=== PATIENT | male | born 1970 | race Caucasian/White ===

== ENCOUNTER 2019-07-05 14:23 | Outpatient (CLI) | payer MEDICAID | END 2019-07-05 23:59 | disposition home or self-care (01) | LOC: RAD 14:23 | PROVIDERS: ATTEND Family Medicine | DX: R13.14 Dysphagia, pharyngoesophageal phase (principal); R13.11 Dysphagia, oral phase; K21.9 Gastro-esophageal reflux disease without esophagitis; F17.200 Nicotine dependence, unspecified, uncomplicated | CPT/HCPCS: 74230 ==

== ENCOUNTER 2024-09-03 14:57 | Emergency (ER) | payer MEDICAID ==
[~2024-09-03] VITALS: Ht 188 cm; Wt 85.0 kg
[2024-09-03] MEDS ORDERED: DOXY100C43 PO (15:26)
[2024-09-03] MEDS ORDERED: HYDR-3686 PO (15:30)
[2024-09-03 15:39] VITALS: BP 130/78; PULSE 78; RESP 16; TEMP 98; O2SAT 98
== END 2024-09-03 15:43 | disposition home or self-care (01) ==
LOC: ER 14:58
DX: L03.115 Cellulitis of right lower limb (principal)
CPT/HCPCS: 99283